=== PATIENT | male | born 1975 | race Caucasian/White ===

== ENCOUNTER 2019-04-02 07:06 | Day surgery (SDC) | payer OTHER ==
[~2019-04-02] VITALS: Ht 185.4 cm; Wt 129.3 kg
[~2019-04-02 07:06] MED LIST: GEMFIBROZIL600 MG PO; GLUCOPHAGE1000 MG PO; JARDIANCE25 MG PO; LISINOPRIL20 MG PO; NEURONTIN600 MG PO; TERBINAFINE 250 MG; TRULICITY0.75 MG/0. SC
[2019-04-02 07:30] LABS: HEMOGLOBIN 15.4 g/dL (13.5-17.5); MCH 33.1 pg (26.0-34.0); MCHC 36.7 g/dL (31.0-37.0); MCV 90.3 fL (80.0-100.0); MEAN PLATELET VOLUME 9.5 fL (7.4-10.4); RBC 4.65 10x6/uL (4.20-6.10); RDW 13.9 % (11.5-14.5); WBC 6.2 10x3/uL (4.8-10.8)
[2019-04-02 07:38] LABS: CALC OSMOLALITY 283 mosm/kg (275-300); CALCIUM 9.4 mg/dL (8.5-10.1); CARBON DIOXIDE 26.9 mmol/L (21.0-32.0); CHLORIDE - SERUM 104 mmol/L (98-107); GLUCOSE 197 mg/dL (74-106); POTASSIUM - SERUM 4.2 mmol/L (3.5-5.1); SODIUM 140 mmol/L (136-145); UREA NITROGEN 12 mg/dL (7-18); eGFR NON AFRICAN AMERICAN 85 mL/min (90-120)
[2019-04-02 08:40] VITALS: BP 106/72; Ht 185.4 cm; Wt 129.3 kg
[2019-04-02] MEDS ORDERED: HYDROCODON-ACE1 EAC7 PO (11:28)
--- NOTE | 2019-04-02 13:29 | NUR ---
1215-REC'D FROM RR. AWAKE AND ALERT. VSS. IV PATENT AT [facility]. FAMILY AT BEDSIDE,CL IN EASY REACH.
--- NOTE | 2019-04-02 13:29 | NUR ---
1245-FULL LIQUID TRAY TO ROOM.NO DISTRESS. STERI STRIPS TO ABD CDI
--- NOTE | 2019-04-02 14:12 | NUR ---
1410-DISCHARGE CRITERIA MET. REMOVED IV FROM LEFT HAND WITH CATH INTACT. DISPOSED INTO SHARPS CONTAINER. COVERED SITE WITH BANDAID. REVIEWED DISCHARGE CRITERIA WITH PT AND SPOUSE. VERBALIZED UNDERSTANDING WITHOUT QUESTIONS OR CONCERNS. ESCORTED OUT VIA W/C BY VOLUNTEER WITH SPOUSE TO DRIVE HOME.
== END 2019-04-02 14:10 | disposition home or self-care (01) ==
LOC: D.OPS 07:06 → D.PAN 09:00 → D.OPS 09:30 → D.PAN 10:30 → D.OPS 14:10
PROVIDERS: Anesthesiology; ATTEND Surgery
DX: K80.20 Calculus of gallbladder without cholecystitis without obstruction (principal); E11.9 Type 2 diabetes mellitus without complications; I10 Essential (primary) hypertension